=== PATIENT | male | born 1965 | race African-American/Black ===

== ENCOUNTER 2016-07-17 08:19 | Emergency (ER) | payer SELFPAY ==
[~2016-07-17] VITALS: Ht 165.1 cm; Wt 81.6 kg
[2016-07-17] MEDS ORDERED: IBUPROFEN 800 MG TABLET. PO ONE (10:00)
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
[2016-07-17] MEDS ORDERED: CYCL10TA2 PO (10:57)
[2016-07-17 11:12] VITALS: BP 135/58
== END 2016-07-17 11:13 | disposition home or self-care (01) ==
LOC: ER 08:19
DX: R51 Headache (principal); R42 Dizziness and giddiness; M54.6 Pain in thoracic spine; V49.59XA Passenger injured in collision with other motor vehicles in traffic accident, initial encounter; Y93.89 Activity, other specified; Y92.89 Other specified places as the place of occurrence of the external cause; Y99.8 Other external cause status
CPT/HCPCS: 70450; 99284-25